=== PATIENT | male | born 1985 | race Caucasian/White ===

== ENCOUNTER 2022-04-23 00:40 | Emergency (ER) | payer SELFPAY ==
[2022-04-23] MEDS ORDERED: Ibuprofen 600 MG Tab PO ONE (01:13)
[2022-04-23] MEDS ORDERED: Cephalexin 500 MG Cap PO ONE (01:13)
== END 2022-04-23 02:25 | disposition home or self-care (01) ==
LOC: MW.ED 00:40
DX: S61.250A Open bite of right index finger without damage to nail, initial encounter (principal); Z88.2 Allergy status to sulfonamides; W53.11XA Bitten by rat, initial encounter
CPT/HCPCS: 73140; 99283; A9270; 99282

== ENCOUNTER → 2022-06-30 | Emergency (ER) | payer SELFPAY | LOC: MW.ED 05:25 | DX: Z02.89 Encounter for other administrative examinations (principal); I10 Essential (primary) hypertension | CPT/HCPCS: 99281; 99282 ==

== ENCOUNTER 2022-07-25 03:20 | Emergency (ER) | payer OTHER ==
[2022-07-25] MEDS ORDERED: Ibuprofen 600 MG Tab PO ONE (04:32)
== END 2022-07-25 04:48 | disposition home or self-care (01) ==
LOC: MW.ED 03:20
DX: S83.91XA Sprain of unspecified site of right knee, initial encounter (principal); M23.91 Unspecified internal derangement of right knee; Z88.2 Allergy status to sulfonamides; Z72.0 Tobacco use; W18.30XA Fall on same level, unspecified, initial encounter
CPT/HCPCS: 73562; 99283; A9270

== ENCOUNTER 2022-08-12 17:27 | Emergency (ER) | payer SELFPAY ==
[2022-08-12] MEDS ORDERED: Ciprofloxacin 500 MG Tab PO ONE (21:23)
== END 2022-08-12 21:32 | disposition home or self-care (01) ==
LOC: MW.ED 17:27
DX: S61.251A Open bite of left index finger without damage to nail, initial encounter (principal); Z88.2 Allergy status to sulfonamides; W53.11XA Bitten by rat, initial encounter
CPT/HCPCS: 99283; A9270

== ENCOUNTER 2022-09-03 00:37 | Emergency (ER) | payer SELFPAY ==
[2022-09-03] MEDS ORDERED: Octyl 2-Cyanoacrylate 1 g/1 mL 1 APPLIC PEN TOP ONE (01:57)
[2022-09-03] MEDS ORDERED: Amoxicillin/Clavulanate K 875-125 MG Tab PO STA (02:05)
== END 2022-09-03 02:32 | disposition home or self-care (01) ==
LOC: MW.ED 00:37
DX: S61.211A Laceration without foreign body of left index finger without damage to nail, initial encounter (principal); Z88.2 Allergy status to sulfonamides; Z72.0 Tobacco use; W53.11XA Bitten by rat, initial encounter
CPT/HCPCS: 12001; 73140; 99283; A9270

== ENCOUNTER 2022-10-23 22:21 | Emergency (ER) | payer BC ==
[2022-10-23] MEDS ORDERED: Ketorolac 30 MG/ML SDV IM ONE (23:40)
== END 2022-10-24 00:02 | disposition home or self-care (01) ==
LOC: MW.ED 22:21
DX: S29.012A Strain of muscle and tendon of back wall of thorax, initial encounter (principal); Z72.0 Tobacco use; Z88.2 Allergy status to sulfonamides; W18.30XA Fall on same level, unspecified, initial encounter
CPT/HCPCS: 96372; 99283; J1885; 99282

== ENCOUNTER 2023-02-28 20:43 | Emergency (ER) | payer SELFPAY ==
[2023-02-28] MEDS ORDERED: Penicillin G Benzathine 1,200,000 Units/2 ML Syringe IM ONE (21:26)
== END 2023-02-28 22:15 | disposition home or self-care (01) ==
LOC: MW.ED 20:43
DX: J02.0 Streptococcal pharyngitis (principal); Z88.2 Allergy status to sulfonamides
CPT/HCPCS: 87651; 96372; 99283; J0561

== ENCOUNTER 2023-05-19 00:13 | Emergency (ER) | payer SELFPAY | END 2023-05-19 00:56 | disposition home or self-care (01) | LOC: MW.ED 00:13 | DX: S20.219A Contusion of unspecified front wall of thorax, initial encounter (principal); Z88.1 Allergy status to other antibiotic agents; W50.0XXA Accidental hit or strike by another person, initial encounter | CPT/HCPCS: 93005; 93010; 99283; 99284 ==

== ENCOUNTER 2023-08-17 21:22 | Emergency (ER) | payer SELFPAY ==
[2023-08-17] MEDS ORDERED: Sodium Chloride 0.9% 2.5 ML Syringe FLUSH PRN (21:37)
[2023-08-17] MEDS ORDERED: Sodium Chloride 0.9% 10 ML Syringe FLUSH PRN (21:37)
[2023-08-17] MEDS ORDERED: Sodium Chloride 0.9% 1,000 ML IV ONE (21:37)
[2023-08-17] MEDS ORDERED: Metoclopramide 10 MG/2 ML SDV IVPUSH ONE (21:37)
[2023-08-17] MEDS ORDERED: diphenhydrAMINE 50 MG/ML SDV IVPUSH ONE (21:37)
[2023-08-17 21:57] LABS: BASOPHILS ABSOLUTE AUTO 0.08 K/uL (0.00-0.20); EOSINOPHILS ABSOLUTE AUTO 0.31 K/uL (0.00-0.45); EOSINOPHILS PERCENT AUTO 3.9 % (0.0-6.0); HEMATOCRIT 43.8 % (42.0-52.0); HEMOGLOBIN 15.4 g/dL (14.0-18.0); IMMATURE GRAN ABSOLUTE AUTO 0.02 K/uL (0.00-0.05); IMMATURE GRAN PERCENT AUTO 0.3 % (0.0-0.4); LYMPHOCYTES ABSOLUTE AUTO 3.04 K/uL (1.00-4.80); LYMPHOCYTES PERCENT AUTO 38.5 % (24.0-44.0); MEAN CORPUSCULAR HGB CONC 35.2 g/dL (32.0-36.0); MEAN CORPUSCULAR VOLUME 91.1 fL (83.0-99.0); MEAN PLATELET VOLUME 8.9 fL (9.4-12.4); MONOCYTES PERCENT AUTO 7.6 % (0.0-8.0); NEUTROPHILS ABSOLUTE AUTO 3.84 K/uL (1.80-7.70); NEUTROPHILS PERCENT AUTO 48.7 % (41.0-71.0); PLATELET COUNT,PLT 214 K/uL (150-400); RED BLOOD CELL COUNT 4.81 M/uL (4.52-5.90); WHITE BLOOD CELL COUNT,WBC 7.89 K/uL (3.9-11.3)
[2023-08-17 22:17] LABS: INR 1.04 (0.86-1.11); PTT,PARTIAL THROMBOPLSTIN TIME 25.9 SEC (23.9-30.7)
[2023-08-17 22:30] LABS: A/G RATIO 1.4 (0.9-1.6); ACETAMINOPHEN <2.0 ug/mL; ALANINE AMINOTRANSFERASE,ALT 38 IU/L (14-63); ALBUMIN 3.9 g/dL (3.4-5.0); ALKALINE PHOSPHATASE 57 U/L (46-116); ASPARTATE AMNIOTRANSFERASE,AST 11 IU/L (15-37); BILIRUBIN TOTAL 0.2 mg/dL (0.2-1.0); BLOOD UREA NITROGEN,BUN 12 mg/dL (7.0-18.0); CALCIUM 8.6 mg/dL (8.5-10.1); CARBON DIOXIDE,CO2 25.9 mmol/L (21.0-32.0); CHLORIDE,CL 105 mmol/L (98-107); EST CRCL DRUG DOSING (CG) 108.86 mL/min; GLUCOSE RANDOM 89 mg/dL (74-106); LIPASE 23 U/L (16-77); MAGNESIUM 1.8 mg/dL (1.8-2.4); POTASSIUM,K 3.6 mmol/L (3.5-5.1); PROTEIN TOTAL,TP 6.7 g/dL (6.4-8.2); SALICYLATE 4.8 mg/dL (0.0-20.0); SODIUM,NA 140 mmol/L (136-148)
[2023-08-17 22:31] LABS: ESTIMATED GFR 98 mL/min (>60)
== END 2023-08-17 22:57 | disposition home or self-care (01) ==
LOC: MW.ED 21:22
DX: R51.9 Headache, unspecified (principal); M54.2 Cervicalgia; Z88.2 Allergy status to sulfonamides
CPT/HCPCS: 36415; 70450; 80053; 80143; 80179; 83690; 83735; 84484; 85025; 85610; 85730; 93005; 96374; 96375; 99284; J1200; J2765; J3490; J7030; 93010